=== PATIENT | male | born 1975 | race Caucasian/White ===

== ENCOUNTER 2021-10-09 05:33 | Outpatient (CLI) | payer MEDICAID, OTHER ==
[~2021-10-09] VITALS: Ht 185 cm; Wt 79.5 kg
[2021-10-10] MEDS ORDERED: ACET12.5 PO (14:46)
[2021-10-10] MEDS ORDERED: GBPN600T PO (14:46)
== END 2021-10-10 14:55 | disposition home or self-care (01) ==
LOC: PREOP 05:33
PROVIDERS: ATTEND Otolaryngology Otolaryngology/Facial Plastic Surgery
DX: Z01.818 Encounter for other preprocedural examination (principal)

== ENCOUNTER 2021-10-16 07:08 | Day surgery (SDC) | payer MEDICAID, OTHER ==
[2021-10-16] VITALS (10 sets, daily range): BP systolic 122–176; BP diastolic 85–115
[~2021-10-16] VITALS: Ht 185 cm; Wt 79.5 kg
[~2021-10-16 07:08] MED LIST: ACET12.5 PO; GBPN600T PO
[2021-10-16] MEDS: LACTATED RINGERS 1,000 ML IV PRN ×2 (07:39→09:15)
[2021-10-16] MEDS ORDERED: LIDOCAINE/EPI 2% 1:200,00 (XYLOCAINE) 10 ML VIAL ONE ×2 (08:31→08:32)
[2021-10-16] MEDS ORDERED: proPOfol 200 MG/20 ML (DIPRIVAN) VIAL IV ONE ×2 (08:31→09:52)
[2021-10-16] MEDS ORDERED: MIDAZOLAM 2 MG/2 ML (VERSED) VIAL ONE (08:31)
[2021-10-16] MEDS ORDERED: ONDANSETRON 4 MG/2 ML (SDV) Z0FRAN ONE (08:31)
[2021-10-16] MEDS ORDERED: MUPIROCIN 2% OINT 22 GM (BACTROBAN) TUBE ONE (08:31)
[2021-10-16] MEDS ORDERED: fentaNYL INJ 100 MCG/2 ML AMP ONE (08:31)
[2021-10-16] MEDS ORDERED: LIDOCAINE PF 2% 5 ML (XYLOCAINE) VIAL ONE (08:31)
--- NOTE | 2021-10-16 08:45 | Progress Note-Pre Operative ---
Pre-Operative Progress Note H&P Reviewed The H&P was reviewed, patient examined and no changes noted. Date Seen by Provider: Oct 16, 2021 Time Seen by Provider: 08:30 Date H&P Reviewed: Oct 16, 2021 Time H&P Reviewed: 08:30 Pre-Operative Diagnosis: Left Neck Mass JOHNNY ASHER MD Oct 16, 2021 08:45
[2021-10-16] MEDS ORDERED: HYDROmorphone 2 MG/ML VIAL (DILAUDID) ONE (09:35)
--- NOTE | 2021-10-16 10:06 | Progress Note-Post Operative ---
Post-Operative Progess Note Surgeon (s)/Manager Audit (s) Surgeon JOHNNY ASHER MD Manager Audit n/a Pre-Operative Diagnosis Left Neck Mass Post-Operative Diagnosis same Post-Op Procedure Note Date of Procedure: Oct 16, 2021 Name of Procedure Performed: Excision of Left Neck Mass with Complex Repair Description & Findings Description and Findings: n/a Anesthesia Type lma Estimated Blood Loss minimal Packing none. Specimen(s) collected/removed left neck mass-lipoma JOHNNY ASHER MD Oct 16, 2021 10:06
[2021-10-16] MEDS ORDERED: SEVOFLURANE (ULTANE) 15 ML INHAL SOLN ONE (10:10)
[2021-10-16] MEDS ORDERED: HYDROcodone/APAP 5 MG/325 MG (LORTAB) TAB PO PRN (10:15)
[2021-10-16] MEDS ORDERED: ACETAMINOPHEN 325 MG TABLET PO PRN (10:15)
[2021-10-16] MEDS ORDERED: HYDROmorphone 2 MG/ML VIAL (DILAUDID) IV ONE (10:45)
[2021-10-16] MEDS ORDERED: morphine INJ 10 MG/ML 1ML (SYR OR VIAL) IVP ONE (10:45)
[2021-10-16] MEDS ORDERED: ONDANSETRON 4 MG/2 ML (SDV) Z0FRAN IVP PRN (10:45)
[2021-10-16] MEDS ORDERED: morphine INJ 10 MG/ML 1ML (SYR OR VIAL) ONE (10:56)
[2021-10-16] MEDS ORDERED: CEPH500T PO (11:41)
[2021-10-16] MEDS ORDERED: ACHD5005 PO (11:41)
--- NOTE | 2021-10-20 11:55 | Anesthesia-General Post-Op ---
General Patient Condition Mental Status/LOC: Same as Preop Cardiovascular: Satisfactory Nausea/Vomiting: Absent Respiratory: Satisfactory Pain: Controlled Complications: Absent Post Op Complications Complications None Follow Up Care/Instructions Patient Instructions None needed. Anesthesia/Patient Condition Patient Condition Post-dated progress note: Patient was doing well after the procedure, seen on 10-16 at approximately 1130 with no complaints, stable vital signs, no apparent adverse anesthesia problems. No complications reported per nursing. LAINA SUGGS DO Oct 20, 2021 11:55
== END 2021-10-16 12:05 | disposition home or self-care (01) ==
LOC: SDC 07:08
PROVIDERS: ATTEND Otolaryngology Otolaryngology/Facial Plastic Surgery
DX: D17.0 Benign lipomatous neoplasm of skin and subcutaneous tissue of head, face and neck (principal)
CPT/HCPCS: 87081